=== PATIENT | male | born 1950 | race Caucasian/White ===

== ENCOUNTER → 2016-06-29 | Day surgery (SDC) | payer MEDICARE ==
[~2016-06-29] MED LIST: ACETAMINOPHEN/HYDROcodone 325 MG/5 MG TAB ONE; ASPI1TAB69 PO; BUPIVACAINE/EPINEPHRINE 0.5% 50 ML VIAL ONE; CEPH-460 PO; CYAN1000P IM; CYMB30CA PO; DILT-64 PO; FURO1TAB60 PO; GABA400C5 PO; GLIM4TAB PO; HYDR-3288 PO; HYDR-3535 PO; KETOROLAC TROMETHAMINE 30 MG/ML (IVP) VIAL IV PUSH ONE; LACTATED RINGER'S 1000 ML INJ 1,000 ML ONE; LIPI80TA PO; LISI20TA PO; MIDAZOLAM HCL 2 MG/2 ML VIAL ONE; PRIM50TA5 PO; PROPOFOL 200 MG/20 ML AMP IV ONE; PROS5TAB PO; ROPI0.5T PO; ZETI10TA5 PO; ceFAZolin INJ 1,000 MG VIAL ONE
--- NOTE | 2016-06-29 16:04 | TN ---
cc: MEMO BRADFORD DATE OF SURGERY: 06/29/2016 PREOPERATIVE DIAGNOSIS: Internal derangement of the right knee. POSTOPERATIVE DIAGNOSIS: Complex tear of the medial meniscus, right knee. Displaced bucket handle. Osteoarthritis right knee, mild. PROCEDURE: Arthroscopy of the right knee. Arthroscopic medial meniscectomy. SURGEON: Memo Bradford MD. ANESTHESIA: General. ESTIMATED BLOOD LOSS: Minimal. INDICATIONS FOR PROCEDURE: This patient is a 65 year-old male who in December of this year twisted his right knee. He has significant increasing pain, although it began to improve but then suddenly became symptomatic again. An MRI scan shows evidence of a torn medial meniscus. He presents for surgical treatment. PROCEDURE: The patient was brought to the operating room and anesthetized in the supine position. The right knee was scrubbed with alcohol, followed by Hibiclens, followed by Chloraprep and draped sterilely in the clear air suite. Antibiotics were given within a one hour time window and a time out was done. PROCEDURE: The patient was brought to the operating room and anesthetized in the supine position. A time out was done. After exsanguination the tourniquet is inflated to 200 mmHg. Inflow was established anterior and laterally. The knee was drained of an effusion. The camera was introduced along the lateral joint line. The suprapatellar pouch was unremarkable. Retropatellar surface shows grade 1 changes. There were no loose bodies in the medial or lateral gutters. The medial compartment showed evidence of a bucket handle tear that had torn from approximately the 2:00 o'clock position and is hooked into the notch. The anterior portion of the meniscus looked normal. Grade had changes of the distal femur and proximal medial tibial plateau were noted. The ACL showed mild synovitis but otherwise was intact. The lateral compartment was normal. The spinal needle was used to localize the medial incision. A separate incision was made. Straight and angled punches were used to take the meniscus back to the stable rim from the posterior hook to approximately the 3:00 clock position. The meniscal debrider was used to remove the fragments and smooth the edges of the meniscus. A synovectomy in the notch was necessary. The wound was irrigated copiously, the portals were injected with half percent Marcaine with epinephrine and were closed with Steri-Strips and benzoin. Sterile dressing was applied. The patient was awakened and taken to the Recovery Room in satisfactory condition. Memo MD MARC Hong/keron /3:44 PM /3:54 PM
== END | disposition home or self-care (01) ==
LOC: ESDC 11:45
PROVIDERS: ATTEND Orthopaedic Surgery Orthopaedic Surgery of the Spine
DX: S83.231A Complex tear of medial meniscus, current injury, right knee, initial encounter (principal); M17.11 Unilateral primary osteoarthritis, right knee
CPT/HCPCS: 01400; 29881; J0690; J1885; J2250; J3010; J7120

== ENCOUNTER → 2016-08-13 | Day surgery (SDC) | payer MEDICARE ==
[~2016-08-13] MED LIST changes: -ACETAMINOPHEN/HYDROcodone 325 MG/5 MG TAB ONE; -BUPIVACAINE/EPINEPHRINE 0.5% 50 ML VIAL ONE; -KETOROLAC TROMETHAMINE 30 MG/ML (IVP) VIAL IV PUSH ONE; -MIDAZOLAM HCL 2 MG/2 ML VIAL ONE; -PROPOFOL 200 MG/20 ML AMP IV ONE; +PROPOFOL 500 MG/50 ML BTL IV ONE; -ceFAZolin INJ 1,000 MG VIAL ONE
== END | disposition home or self-care (01) ==
LOC: ESDC 08:51
PROVIDERS: ATTEND Internal Medicine Gastroenterology
DX: R10.9 Unspecified abdominal pain (principal); K29.70 Gastritis, unspecified, without bleeding; K22.70 Barrett's esophagus without dysplasia; K29.80 Duodenitis without bleeding; K44.9 Diaphragmatic hernia without obstruction or gangrene
CPT/HCPCS: 00740; 43239; 88305; J7120

== ENCOUNTER 2018-08-10 16:22 | Inpatient (IN) ==
[2018-08-10] MEDS ORDERED: Clindamycin 600 mg/NS Premix 600 MG/50 ML PIGGYBACK IV.SIG ONE (16:57)
[2018-08-10] MEDS ORDERED: Lidocaine 1% Inj 50 ML Vial INFILTRATN ONE (16:57)
[2018-08-10 17:42] LABS: Baso # (Auto) 0.1 th/mm3 (0.0-0.2); Baso % (Auto) 0.6 % (0.0-2.0); Eos # (Auto) 0.2 th/mm3 (0.0-0.4); Eos % (Auto) 1.6 % (0.0-4.0); Hematocrit 47.9 % (39.0-51.0); Hemoglobin 16.5 gm/dL (13.0-17.0); Lymph # (Auto) 1.4 th/mm3 (1.0-4.8); Lymph % (Auto) 10.6 % (9.0-44.0); Mean Corpuscular HGB Conc 34.3 % (32.0-36.0); Mean Corpuscular Hemoglobin 31.6 pg (27.0-34.0); Mean Corpuscular Volume 92.1 fL (80.0-100.0); Mean Platelet Volume 9.6 fL (7.0-11.0); Mono % (Auto) 7.7 % (0.0-8.0); Neut # (Auto) 10.4 th/mm3 (1.8-7.7); Neut % (Auto) 79.5 % (16.0-70.0); Platelet Count 183 th/mm3 (150-450); Red Cell Distribution Width 15.6 % (11.6-17.2); White Blood Count 13.1 th/mm3 (4.0-11.0)
[2018-08-10 17:53] LABS: Calcium 8.4 mg/dL (8.5-10.1); Carbon Dioxide 28.6 meq/L (21.0-32.0); Potassium 3.5 meq/L (3.5-5.1)
--- NOTE | 2018-08-10 18:21 | ED ---
HPI General Chief complaint: Skin/Abscess/Foreign Body Stated complaint: numbness in both feet/skin complaint Time Seen by Provider: 08/10/18 16:33 Source: patient and family Mode of arrival: ambulatory Limitations: no limitations History of Present Illness HPI narrative: 68-year-old man who presents to the emergency department complaining of pain and swelling on his left elbow. He also has several small skin wounds. Is a history of MRSA bursitis in his right elbow. This was treated in 2016. He required 2 surgeries for debridement and washout. He was seen by Dr. Mantilla. He states these symptoms began worse over the past several days. No fever. Is a history of diabetes. Is able to range the elbow without significant discomfort. No other complaints. Related Data Home Medications Medication Instructions Recorded Confirmed amitriptyline 25 mg PO DAILY 08/10/18 08/10/18 aspirin 81 mg PO DAILY 08/10/18 08/10/18 atorvastatin 80 mg PO QPM 08/10/18 08/10/18 bupropion HCl [Wellbutrin SR] 100 mg PO BID 08/10/18 08/10/18 diltiazem HCl 240 mg PO DAILY 08/10/18 08/10/18 duloxetine 60 mg PO BID 08/10/18 08/10/18 finasteride 5 mg PO DAILY 08/10/18 08/10/18 furosemide 40 mg PO DAILY 08/10/18 08/10/18 gabapentin 600 mg PO TID 08/10/18 08/10/18 glimepiride 4 mg PO BID 08/10/18 08/10/18 hydrocodone-acetaminophen 1 tab PO Q6H PRN 08/10/18 08/10/18 lisinopril-hydrochlorothiazide 1 tab PO DAILY 08/10/18 08/10/18 melatonin 6 mg PO HS PRN 08/10/18 08/10/18 prazosin 2 mg PO HS 08/10/18 08/10/18 ranitidine HCl 150 mg PO BID 08/10/18 08/10/18 ropinirole 0.25 mg PO BID 08/10/18 08/10/18 trazodone 200 mg PO DAILY 08/10/18 08/10/18 Allergies Allergy/AdvReac Type Severity Reaction Status Date / Time adhesive Allergy Severe RASH Unverified 04/25/17 09:56 penicillin G Allergy Severe Unverified 04/25/17 09:56 Review of Systems ROS: all other systems reviewed are negative FOR[facility]LY [facility] Medical History Medical History Arthritis (Acute) COPD (chronic obstructive pulmonary disease) (Acute) Diabetes (Acute) Hypertension (Acute) MRSA (methicillin resistant Staphylococcus aureus) (Acute) Neuropathy (Acute) Social History Social History Substance History: No History of Abuse Smoking Status: Current every day smoker Tobacco Type: Cigarettes How Often Do You Have a Drink Containing Alcohol: Never Recent Travel in [facility] within the Last 8 Weeks: No Recent Out of Country Travel within the Last 8 Weeks: No Immunization History Tetanus Immunization: <5 Years Exam Narrative Exam Narrative: GENERAL: 68-year-old man, no acute distress. SKIN: Multiple dry skin scattered psoriatic appearing plaques on the upper and lower extremities. HEAD: Atraumatic. Normocephalic. EYES: Pupils equal and round. No scleral icterus. No injection or drainage. ENT: No nasal bleeding or discharge. Mucous membranes pink and moist. NECK: Trachea midline. No JVD. CARDIOVASCULAR: Regular rate and rhythm. No murmur appreciated. RESPIRATORY: No accessory muscle use. Clear to auscultation. Breath sounds equal bilaterally. GASTROINTESTINAL: Abdomen soft, non-tender, nondistended. Hepatic and splenic margins not palpable. MUSCULOSKELETAL: No obvious deformities. Scars on the right elbow. Left elbow has a prominent olecranon bursa with erythema warmth and tenderness. NEUROLOGICAL: Awake and alert. No obvious cranial nerve deficits. Motor grossly within normal limits. Normal speech. Procedures Joint Aspiration/Injection Joint Asp./Inject. 1: Time Out Performed: Yes Side of Body: left Joint Aspirated: elbow Ultrasound Guidance: Yes Skin Prep: Povidone-Iodine1% Local Anesthesia Used: lidocaine 1% Amount of anesthesia used (mL): 5 Needle Size Used: 18G Complications: unable to obtain fluid Additional Comments: 2 attempts were made to aspirate fluid from the left olecranon bursa without fluid return. Initial attempt was a landmark base. Second attempt using ultrasound a localized pocket of fluid, but still no return of fluid on aspiration. Fluid did appear complex. Course Initial Documented Vital Signs Temperature 98.4 F 02/17/19 16:24 Pulse Rate 96 H 08/10/18 16:24 Respiratory Rate 24 08/10/18 16:24 Blood Pressure 132/71 08/10/18 16:24 Pulse Oximetry 87 L 08/10/18 16:24 Last Documented Vital Signs Temperature 98.4 F 08/10/18 16:24 Pulse Rate 76 08/10/18 18:27 Respiratory Rate 18 08/10/18 18:27 Blood Pressure 132/71 08/10/18 16:24 Pulse Oximetry 92 L 08/10/18 18:27 Medical Decision Making MDM Narrative Medical decision making narrative: 68-year-old man with olecranon bursitis, diabetes, history of MRSA infected bursitis in the past. To attempt to obtain bursa fluid were unsuccessful. The fluid does look complex. I am not sure why the fluid was not able to be obtained as this procedure seem fairly straightforward and there appeared to be fluid to drain on the ultrasound. Will check x-ray. Will check basic labs were discussed with orthopedics. Possibly radiology guided procedure. Possibly tophaceous gout mimicking olecranon bursitis? Plan on admission. Spoke with Ofelia, with orthopedics, recommends holding antibiotics pending fluid analysis. They will consult on the patient in the a.m. Spoke with Dr. Dodge, will admit patient. Medical Screen Exam Complete: Yes Emergency Medical Condition: Yes Lab Data Result diagrams: 08/10/18 17:15 08/10/18 17:15 Lab Results 08/10/18 08/10/18 08/10/18 Range/Units 17:15 17:15 17:15 WBC 13.1 H (4.0-11.0) th/mm3 RBC 5.20 (4.50-5.90) mil/mm3 Hgb 16.5 (13.0-17.0) gm/dL Hct 47.9 (39.0-51.0) % MCV 92.1 (80.0-100.0) fL MCH 31.6 (27.0-34.0) pg MCHC 34.3 (32.0-36.0) % RDW 15.6 (11.6-17.2) % Plt Count 183 (150-450) th/mm3 MPV 9.6 (7.0-11.0) fL Neut % (Auto) 79.5 H (16.0-70.0) % Lymph % (Auto) 10.6 (9.0-44.0) % [place] % (Auto) 7.7 (0.0-8.0) % Eos % (Auto) 1.6 (0.0-4.0) % Baso % (Auto) 0.6 (0.0-2.0) % Neut # (Auto) 10.4 H (1.8-7.7) th/mm3 Lymph # (Auto) 1.4 (1.0-4.8) th/mm3 [place] # (Auto) 1.0 H (0.0-0.9) th/mm3 Eos # (Auto) 0.2 (0.0-0.4) th/mm3 Baso # (Auto) 0.1 (0.0-0.2) th/mm3 WBC Differential . Differential Comment Auto diff final ESR (0-20) mm/hr Sodium 136 (136-145) meq/L Potassium 3.5 (3.5-5.1) meq/L Chloride 100 (98-107) meq/L Carbon Dioxide 28.6 (21.0-32.0) meq/L Anion Gap 7 (5-15) meq/L BUN 16 (7-18) mg/dL Creatinine 1.09 (0.60-1.30) mg/dL Estimated GFR 67 L (>89) mL/min Random Glucose 239 H (74-106) mg/dL Calcium 8.4 L (8.5-10.1) mg/dL C-Reactive Protein 7.50 H (0.00-0.30) mg/dL 08/10/18 Range/Units 17:15 WBC (4.0-11.0) th/mm3 RBC (4.50-5.90) mil/mm3 Hgb (13.0-17.0) gm/dL Hct (39.0-51.0) % MCV (80.0-100.0) fL MCH (27.0-34.0) pg MCHC (32.0-36.0) % RDW (11.6-17.2) % Plt Count (150-450) th/mm3 MPV (7.0-11.0) fL Neut % (Auto) (16.0-70.0) % Lymph % (Auto) (9.0-44.0) % [place] % (Auto) (0.0-8.0) % Eos % (Auto) (0.0-4.0) % Baso % (Auto) (0.0-2.0) % Neut # (Auto) (1.8-7.7) th/mm3 Lymph # (Auto) (1.0-4.8) th/mm3 [place] # (Auto) (0.0-0.9) th/mm3 Eos # (Auto) (0.0-0.4) th/mm3 Baso # (Auto) (0.0-0.2) th/mm3 WBC Differential Differential Comment ESR 4 (0-20) mm/hr Sodium (136-145) meq/L Potassium (3.5-5.1) meq/L Chloride (98-107) meq/L Carbon Dioxide (21.0-32.0) meq/L Anion Gap (5-15) meq/L BUN (7-18) mg/dL Creatinine (0.60-1.30) mg/dL Estimated GFR (>89) mL/min Random Glucose (74-106) mg/dL Calcium (8.5-10.1) mg/dL C-Reactive Protein (0.00-0.30) mg/dL Imaging Data Radiologist's impression: Elbow X-Ray 08/10/18 18:04 CONCLUSION: Soft tissue swelling extensor surface of the elbow most characteristic of an olecranon bursitis. Discharge Plan Discharge Disposition Patient Disposition: ED Admit(ED Internal Use Only) Discharge Order Discharge Orders: ED Use Only Admit Order (Routine); Ordered 08/10/18 Ordered By: Vidal Carter Physicians Team ED Provider: Vidal Carter Rxs /Orders / Referrals /Forms Prescriptions: No Action furosemide 40 mg Tablet 40 mg PO DAILY RF: 0 atorvastatin 80 mg Tablet 80 mg PO QPM RF: 0 lisinopril-hydrochlorothiazide 20-12.5 mg Tablet 1 tab PO DAILY RF: 0 diltiazem HCl 240 mg Capsule,Extended Release 24 Hr 240 mg PO DAILY RF: 0 melatonin 3 mg Tablet 6 mg PO HS PRN (Reason: Sleep) RF: 0 bupropion HCl [Wellbutrin SR] 100 mg Tablet Sustained-Release 12 Hr 100 mg PO BID RF: 0 glimepiride 2 mg Tablet 4 mg PO BID RF: 0 amitriptyline 25 mg Tablet 25 mg PO DAILY RF: 0 trazodone 100 mg Tablet 200 mg PO DAILY RF: 0 ropinirole 0.25 mg Tablet 0.25 mg PO BID RF: 0 hydrocodone-acetaminophen 7.5-325 mg Tablet 1 tab PO Q6H PRN (Reason: Pain) RF: 0 ranitidine HCl 150 mg Tablet 150 mg PO BID RF: 0 gabapentin 300 mg Capsule 600 mg PO TID RF: 0 aspirin 81 mg Tablet,Chewable 81 mg PO DAILY RF: 0 finasteride 5 mg Tablet 5 mg PO DAILY RF: 0 prazosin 2 mg Capsule 2 mg PO HS RF: 0 duloxetine 60 mg Capsule,Delayed Release(Dr/Ec) 60 mg PO BID RF: 0 Discharge Interventions Interventions: Vital Signs Last Done: 08/10/18 18:27 Status ED Status: With Doctor
--- NOTE | 2018-08-10 18:31 | XR ---
EXAM DATE: 08/10/2018 6:22 PM EST AGE/SEX: 68 years / Male INDICATIONS: Inflammation and pain left elbow, denies injury CLINICAL DATA: This is the patient's initial encounter. Patient reports that signs and symptoms have been present for 2 weeks and indicates a pain score of 6/10. MEDICAL/SURGICAL HISTORY: Diabetes mellitus type II. Hypertension. None. COMPARISON: No prior exams available for comparison. FINDINGS: Bony structures are intact and in normal alignment. Joints are intact without dislocation or signifi cant arthropathy. Osseous density is normal. There is marked soft tissue swelling over the extensor surface of the elbow. CONCLUSION: Soft tissue swelling extensor surface of the elbow most characteristic of an olecranon bursitis. Electronically signed by: Jimmy Connors MD Board Certified Radiologist 08/10/2018 6:29 PM EST
[2018-08-10] MEDS ORDERED: Acetaminophen 325 MG Tablet PO PRN (18:56)
[2018-08-10] MEDS ORDERED: HYDROmorphone PF Inj 2 MG/ML Vial IV.PUSH PRN (19:00)
[2018-08-10] MEDS ORDERED: Dextrose 50% in Water 50 ML Vial IV.PUSH PRN (19:00)
[2018-08-10] MEDS ORDERED: MELATONIN 6 MG PO PRN (19:03)
[2018-08-10] MEDS: KCL 20 mEq/NACL 0.45% Inj 1,000 ML IV.CONT SCH (19:56)
[2018-08-10] MEDS ORDERED: Finasteride 5 MG Tablet PO SCH (21:00)
[2018-08-10] MEDS ORDERED: Amitriptyline 25 MG Tablet PO SCH (21:00)
[2018-08-10] MEDS ORDERED: Duloxetine 60 MG DR Capsule PO SCH (21:00)
[2018-08-10] MEDS: Insulin NovoLOG Aspart Correctional Sugar Inj SQ SCH (21:23)
[2018-08-10] MEDS: Senna/Docusate Sodium 8.6/50 MG Tablet PO SCH (22:05)
[2018-08-11] MEDS ORDERED: Melatonin 5 MG Tablet PO PRN (00:30)
--- NOTE | 2018-08-11 08:06 | P.HPIM ---
History of Present Illness Primary Care Physician: Dr. Jeffery Fortune Chief Complaint: pain left elbow History of Present Illness: Mr Billy is a 68-year-old man with a past medical history which includes MRSA bursitis in right elbow, diabetes mellitus type 2, hypertension, hyperlipidemia, chronic interstitial lung disease/chronic respiratory failure, pulmonary emphysema, benign pulmonary lung nodules obstructive sleep apnea does not wear CPAP, GERD/hiatal hernia/Cardenas's esophagitis, BPH, adrenal adenoma, nephrolithiasis, fatty liver, mild memory impairment/memory loss follows with Dr. Yoder, squamous cell carcinoma right hand skin, melanoma right interscapular. Patient presents to the emergency department complaining of pain and swelling on his left elbow. He also has several small skin wounds. Is a history of MRSA bursitis in his right elbow. This was treated in 2016. He required 2 surgeries for debridement and washout. He was seen by Dr. Mantilla. He states these symptoms began worse over the past several days. No fever. Is a history of diabetes. Is able to range the elbow without significant discomfort. No other complaints. Patient denies worsening shortness of breath from baseline, chest pain, nausea, vomiting, diarrhea constant, constipation, fever or chills. Past medical history: MRSA bursitis in right elbow, diabetes mellitus type 2, hypertension, hyperlipidemia, chronic interstitial lung disease/chronic respiratory failure, pulmonary emphysema, benign pulmonary lung nodules obstructive sleep apnea does not wear CPAP, GERD/hiatal hernia/Cardenas's esophagitis, BPH, adrenal adenoma, nephrolithiasis, fatty liver, mild memory impairment/memory loss follows with Dr. Yoder squamous cell carcinoma right hand skin, melanoma right interscapular Past surgical history: Left shoulder arthroscopic, right shoulder arthroscopic, cataract surgery, chest tube insertion, laparoscopic cholecystectomy, colonoscopy, EGD, cystourethroscopic, inguinal hernia repair, lumbar laminectomy, lumbar vertebral fusion, paravertebral facet nerve block, ptosis repair, spinal laminectomy decompression, vasectomy, colonoscopy with wedge resection of lung, tonsillectomy, TURP and wide excision melanoma 2009 Social history: Currently lives with spouse Denies EtOH or illicit drug use Tobacco use: smokes 2 PPD started smoking at 17 years old Family medical history: Arthritis, diabetes mellitus, hypertension, CHF Inpatient Certification Inpatient Certification: I certify that the inpatient services were ordered in accordance with Medicare regulations governing the order. This includes certification that hospital inpatient services are reasonable and necessary and in the case of services not specified as inpatient-only under 42 CFR 419.22(n), that they are appropriately provided as inpatient services in accordance to with the 2-midnight benchmark under 43 CFR 412.3(e) Estimated Total Length of Stay (Days): 3 Plans for Post Hospital Care: Not yet determined Medications and Allergies Allergies Allergy/AdvReac Type Severity Reaction Status Date / Time adhesive Allergy Severe RASH Verified 08/10/18 20:17 penicillin G Allergy Severe unknown Verified 08/10/18 20:17 Home Medications Medication Instructions Recorded Confirmed Type amitriptyline 25 mg PO DAILY 08/10/18 08/10/18 History aspirin 81 mg PO DAILY 08/10/18 08/10/18 History atorvastatin 80 mg PO QPM 08/10/18 08/10/18 History bupropion HCl [Wellbutrin SR] 100 mg PO BID 08/10/18 08/10/18 History diltiazem HCl 240 mg PO DAILY 08/10/18 08/10/18 History duloxetine 60 mg PO BID 08/10/18 08/10/18 History finasteride 5 mg PO DAILY 08/10/18 08/10/18 History furosemide 40 mg PO DAILY 08/10/18 08/10/18 History gabapentin 600 mg PO TID 08/10/18 08/10/18 History glimepiride 4 mg PO BID 08/10/18 08/10/18 History hydrocodone-acetaminophen 1 tab PO Q6H PRN 08/10/18 08/10/18 History lisinopril-hydrochlorothiazide 1 tab PO DAILY 08/10/18 08/10/18 History melatonin 6 mg PO HS PRN 08/10/18 08/10/18 History prazosin 2 mg PO HS 08/10/18 08/10/18 History ranitidine HCl 150 mg PO BID 08/10/18 08/10/18 History ropinirole 0.25 mg PO BID 08/10/18 08/10/18 History trazodone 200 mg PO DAILY 08/10/18 08/10/18 History Active Medications: Active Medications Acetaminophen (Tylenol) 650 mg PO Q4H PRN PRN Reason: Temp > 100.4 Hydrocodone Bitart/Acetaminophen ([place] 5/325) 1 tab PO Q4H PRN PRN Reason: pain 1-10, Last Admin: 08/11/18 04:56 Dose: 1 tab Al Hydroxide/Mg Hydroxide (Milk Of Magnko Liq) 30 ml PO Q12H PRN PRN Reason: Mild Constipation Amitriptyline HCl (Elavil) 25 mg PO HS [facility] Last Admin: 08/10/18 22:06 Dose: 25 mg Aspirin (Aspirin Chew) 81 mg PO DAILY [facility] Atorvastatin Calcium (Lipitor) 80 mg PO QPM [facility] Dextrose (D50w Vial) 50 ml IV.PUSH UNSCH PRN PRN Reason: PER HYPOGLYCEMIA PROTOCOL Diltiazem HCl (Cardizem Cd 24hr) 240 mg PO DAILY [facility] Duloxetine HCl (Cymbalta) 60 mg PO BID [facility] Famotidine (Pepcid) 20 mg PO BID [facility] Finasteride (Proscar) 5 mg PO HS [facility] Last Admin: 08/10/18 22:06 Dose: 5 mg Furosemide (Lasix) 40 mg PO DAILY [facility] Gabapentin (Neurontin) 600 mg PO TID [facility] Glucagon (Glucagon Inj) 1 mg OTHER PRN PRN PRN Reason: for Hypoglycemia Protocol Hydrochlorothiazide (Hydrodiuril) 12.5 mg PO DAILY [facility] Hydromorphone HCl (Dilaudid Pf Inj) 0.5 mg IV.PUSH Q4H PRN PRN Reason: BREAKTHROUGH PAIN Potassium Chloride/Sodium Chloride (Potassium Chlor 20 Meq/Nacl 0.45% Inj) 1, 000 mls @ 84 mls/hr IV.CONT .[id number] [facility] Last Admin: 08/10/18 19:56 Dose: 84 mls/hr Insulin Aspart (Novolog Insulin Correctional Sugar Inj) 0 unit SQ ACHS [facility]; Protocol Last Admin: 08/10/18 21:23 Dose: 2 unit Lisinopril (Prinivil) 20 mg PO DAILY [facility] Melatonin (Melatonin) 5 mg PO HS PRN PRN Reason: INSOMNIA Ondansetron HCl (Zofran Inj) 4 mg IV.PUSH Q6H PRN PRN Reason: NAUSEA OR VOMITING Prazosin HCl (Minipress) 2 mg PO HS [facility] Last Admin: 08/10/18 22:40 Dose: 2 mg Ropinirole HCl (Requip) 0.25 mg PO BID [facility] Last Admin: 08/10/18 22:40 Dose: 0.25 mg Senna/Docusate Sodium (Xuan-Colace) 1 tab PO BID [facility] Last Admin: 08/10/18 22:05 Dose: 1 tab Sodium Chloride (Ns Flush) 2 ml IV.FLUSH BID [facility] Last Admin: 08/10/18 22:40 Dose: Not Given Sodium Chloride (Ns Flush) 2 ml IV.FLUSH PRN PRN PRN Reason: FLUSH AFTER USING IV ACCESS Physical Exam Vital signs: Last Vital Signs Temp 98.0 F 08/11/18 00:00 Pulse 92 H 08/11/18 00:00 Resp 22 08/11/18 00:00 BP 141/77 H 08/11/18 00:00 Pulse Ox 90 L 08/11/18 00:00 Narrative: GENERAL: This is a well-nourished, well-developed patient, in no apparent distress. CARDIOVASCULAR: Regular rate and rhythm without murmurs, gallops, or rubs. RESPIRATORY: Clear to auscultation. Breath sounds equal bilaterally. No wheezes , rales, or rhonchi. GASTROINTESTINAL: Abdomen soft, non-tender, nondistended. Normal active bowel sounds MUSCULOSKELETAL: left elbow edemitous NEURO: Alert & Oriented x4 to person, place, time, situation. Moves all ext x4 Results Labs CBC & Chem 7: 08/11/18 07:14 08/11/18 07:14 Caprini VTE Risk Assessment Caprini VTE Risk Assessment: No/Low Risk (score <= 1) Caprini Risk Assessment Model: Point Value = 1 Point Value = 2 Point Value = 3 Point Value = 5 Age 41-60 Minor surgery BMI > 25 kg/m2 Swollen legs Varicose veins or History of unexplained or recurrent spontaneous Oral contraceptives or hormone replacement Sepsis (< 1 month) Serious lung disease, including pneumonia (< 1 month) Abnormal pulmonary function Acute myocardial infarction Congestive heart failure (< 1 month) History of inflammatory bowel disease Medical patient at bed rest Age 61-74 Arthroscopic surgery Major open surgery (> 45 min) Laparoscopic surgery (> 45 min) Malignancy Confined to bed (> 72 hours) Immobilizing plaster cast Central venous access Age >= 75 History of VTE Family history of VTE Factor V Leiden Prothrombin [id number] Lupus anticoagulant Anticardiolipin antibodies Elevated serum homocysteine Heparin-induced thrombocytopenia Other congenital or acquired thrombophilia Stroke (< 1 month) Elective arthroplasty Hip, pelvis, or leg fracture Acute spinal cord injury (< 1 month) Prophylaxis Regimen: Total Risk Factor Score Risk Level Prophylaxis Regimen 0-1 Low Early ambulation 2 Moderate Order ONE of the following: *Sequential Compression Device (SCD) *Heparin 5000 units SQ BID 3-4 Higher Order ONE of the following medications: *Heparin 5000 units SQ TID *Enoxaparin/Lovenox 40 mg SQ daily (WT < 150 kg, CrCl > 30 mL/min) *Enoxaparin/Lovenox 30 mg SQ daily (WT < 150 kg, CrCl > 10-29 mL/min) *Enoxaparin/Lovenox 30 mg SQ BID (WT < 150 kg, CrCl > 30 mL/min) AND/OR *Sequential Compression Device (SCD) 5 or more Highest Order ONE of the following medications: *Heparin 5000 units SQ TID (Preferred with Epidurals) *Enoxaparin/Lovenox 40 mg SQ daily (WT < 150 kg, CrCl > 30 mL/min) *Enoxaparin/Lovenox 30 mg SQ daily (WT < 150 kg, CrCl > 10-29 mL/min) *Enoxaparin/Lovenox 30 mg SQ BID (WT < 150 kg, CrCl > 30 mL/min) AND *Sequential Compression Device (SCD) Assessment and Plan Plan Mr Cervantes is a 68-year-old man with a past medical history which includes MRSA bursitis in right elbow, diabetes mellitus type 2, hypertension, hyperlipidemia , chronic interstitial lung disease/chronic respiratory failure, pulmonary emphysema, benign pulmonary lung nodules obstructive sleep apnea does not wear CPAP, GERD/hiatal hernia/Cardenas's esophagitis, BPH, adrenal adenoma, nephrolithiasis, fatty liver, mild memory impairment/memory loss follows with Dr. Yoder, squamous cell carcinoma right hand skin, melanoma right interscapular. Patient presents to the emergency department complaining of pain and swelling on his left elbow. He also has several small skin wounds. Patient has a history of MRSA bursitis in his right elbow. This was treated in 2016. He required 2 surgeries for debridement and washout. He was seen by Dr. Mantilla. He states these symptoms began worse over the past several days. No fever. Patient is diabetic. Is able to range the elbow without significant discomfort. No other complaints. Patient denies worsening shortness of breath from baseline, chest pain, nausea, vomiting, diarrhea constant, constipation, fever or chills. Olecranon bursitis Patient has a history of MRSA bursitis in his right elbow. This was treated in 2016. He required 2 surgeries for debridement and washout. He was seen by Dr. Mantilla. Patient is also diabetic ER provider attempted to aspirate x2 with no fluid returned ER provider discussed with orthopedics through the night who recommend holding off on antibiotics until after aspiration this a.m. Consultation placed to orthopedic surgery, appreciate assistance. Per Orthopedic surgery: Currently it appears to be inflammatory bursitis. It does not appear to be infection or septic bursitis or septic joint. Orthopedic surgery cleared patient for DC. Pain medication as needed Diabetes mellitus type 2 Accu-Cheks with sliding scale insulin coverage Chronic interstitial lung disease/chronic respiratory failure, pulmonary emphysema Patient denies SOB Patient stable on RA BPH Continue patient's home Finasteride 5 mg daily and prazosin 2 mg p.o. nightly Hyperlipidemia Continue patient's home atorvastatin 80 mg p.o. every afternoon Hypertension Continue patient's home lisinopril/hydrochlorothiazide Continue patient's home diltiazem 240 mg daily GERD Continue patient's home Pepcid DVT prophylaxis with SCDs DC patient home in stable condition on a diabetic diet. Orthopedic surgery recommending conservative treatment with anti-inflammatories , ice, and activity restriction H&P: Quality VTE Deep Vein Thrombosis/Pulmonary Embolism Present on Admission: No
[2018-08-11 08:08] VITALS: RESP 17
--- NOTE | 2018-08-11 08:16 | P.CONOP ---
[facility] Orthopedics Consult Note - [facility] Consult date: 08/11/18 Chief complaint: Left elbow swelling Narrative: Bay is a 68-year-old male. He presented to the emergency room with approximately 10-day history of left elbow swelling. He denies any significant pain. He denies any falls or traumatic injuries. He has a history of previous right elbow bursitis which needed surgery for irrigation debridement of infection. He does have history of diabetes, hypertension, high cholesterol, COPD, sleep apnea, and lung disease. He denies any fevers or chills. The swelling is not improved over the past several days. He denies any pain with elbow motion. He presented emergency room. Attempt was made at aspiration of the elbow. No fluid was obtained. Review of Systems Patient denies fevers, chills, weight loss, headache, visual changes, hearing loss, chest pain, palpitations, shortness of breath, nausea, vomiting, no urinary changes, diarrhea, bowel changes, neck pain, back pain, skin rashes, weakness of extremities, easy bleeding, enlarged lymph nodes, numbness of extremities, anxiety, or depression. He complains of left elbow swelling. He has minimal pain Patient's social history, past medical history, and family history were reviewed on chart and with patient. He has a history of 2 previous surgeries on his right elbow for infection PMFSH - History History Provided By: Patient - Medical History Medical History: Medical History (Last Reviewed 08/11/18 @ 08:13 by Monico Gerardo MD) Arthritis COPD (chronic obstructive pulmonary disease) Diabetes Hypertension MRSA (methicillin resistant Staphylococcus aureus) Neuropathy - Family History Family History: Family History (Last Updated 08/11/18 @ 08:13 by Monico Gerardo MD) Other Family history non-contributory - Social History I have reviewed the patient's Social History: Yes - Tobacco History Second Hand Smoke Exposure: No Tobacco Use In Past 30 Days: Yes Smoking Status: Current some day smoker Tobacco Type: Cigarettes - Alcohol History How Often Do You Have a Drink Containing Alcohol: Never - Substance Use History Substance History: No History of Abuse - Travel History Recent Travel in the [place] Within the Last 8 Weeks: No Recent Travel Out of the Country Within the Last 8 Weeks: No - Immunization History Tetanus Immunization: <5 Years Hx Influenza Vaccine This Season: Yes Medications and Allergies Active Medications: Active Medications Acetaminophen (Tylenol) 650 mg PO Q4H PRN PRN Reason: Temp > 100.4 Hydrocodone Bitart/Acetaminophen ([place] 5/325) 1 tab PO Q4H PRN PRN Reason: pain 1-10, Last Admin: 08/11/18 04:56 Dose: 1 tab Al Hydroxide/Mg Hydroxide (Milk Of Justin Erickson) 30 ml PO Q12H PRN PRN Reason: Mild Constipation Amitriptyline HCl (Elavil) 25 mg PO HS [facility] Last Admin: 08/10/18 22:06 Dose: 25 mg Aspirin (Aspirin Chew) 81 mg PO DAILY [facility] Atorvastatin Calcium (Lipitor) 80 mg PO QPM [facility] Dextrose (D50w Vial) 50 ml IV.PUSH UNSCH PRN PRN Reason: PER HYPOGLYCEMIA PROTOCOL Diltiazem HCl (Cardizem Cd 24hr) 240 mg PO DAILY [facility] Duloxetine HCl (Cymbalta) 60 mg PO BID [facility] Famotidine (Pepcid) 20 mg PO BID [facility] Finasteride (Proscar) 5 mg PO HS [facility] Last Admin: 08/10/18 22:06 Dose: 5 mg Furosemide (Lasix) 40 mg PO DAILY [facility] Gabapentin (Neurontin) 600 mg PO TID [facility] Glucagon (Glucagon Inj) 1 mg OTHER PRN PRN PRN Reason: for Hypoglycemia Protocol Hydrochlorothiazide (Hydrodiuril) 12.5 mg PO DAILY [facility] Hydromorphone HCl (Dilaudid Pf Inj) 0.5 mg IV.PUSH Q4H PRN PRN Reason: BREAKTHROUGH PAIN Potassium Chloride/Sodium Chloride (Potassium Chlor 20 Meq/Nacl 0.45% Inj) 1, 000 mls @ 84 mls/hr IV.CONT .[id number] [facility] Last Admin: 08/10/18 19:56 Dose: 84 mls/hr Insulin Aspart (Novolog Insulin Correctional Sugar Inj) 0 unit SQ ACHS [facility]; Protocol Last Admin: 08/10/18 21:23 Dose: 2 unit Lisinopril (Prinivil) 20 mg PO DAILY [facility] Melatonin (Melatonin) 5 mg PO HS PRN PRN Reason: INSOMNIA Ondansetron HCl (Zofran Inj) 4 mg IV.PUSH Q6H PRN PRN Reason: NAUSEA OR VOMITING Prazosin HCl (Minipress) 2 mg PO HS [facility] Last Admin: 08/10/18 22:40 Dose: 2 mg Ropinirole HCl (Requip) 0.25 mg PO BID [facility] Last Admin: 08/10/18 22:40 Dose: 0.25 mg Senna/Docusate Sodium (Xuan-Colace) 1 tab PO BID [facility] Last Admin: 08/10/18 22:05 Dose: 1 tab Sodium Chloride (Ns Flush) 2 ml IV.FLUSH BID [facility] Last Admin: 08/10/18 22:40 Dose: Not Given Sodium Chloride (Ns Flush) 2 ml IV.FLUSH PRN PRN PRN Reason: FLUSH AFTER USING IV ACCESS Allergies Allergy/AdvReac Type Severity Reaction Status Date / Time adhesive Allergy Severe RASH Verified 08/10/18 20:17 penicillin G Allergy Severe unknown Verified 08/10/18 20:17 Home Medications Medication Instructions Recorded Confirmed Type amitriptyline 25 mg PO DAILY 08/10/18 08/10/18 History aspirin 81 mg PO DAILY 08/10/18 08/10/18 History atorvastatin 80 mg PO QPM 08/10/18 08/10/18 History bupropion HCl [Wellbutrin SR] 100 mg PO BID 08/10/18 08/10/18 History diltiazem HCl 240 mg PO DAILY 08/10/18 08/10/18 History duloxetine 60 mg PO BID 08/10/18 08/10/18 History finasteride 5 mg PO DAILY 08/10/18 08/10/18 History furosemide 40 mg PO DAILY 08/10/18 08/10/18 History gabapentin 600 mg PO TID 08/10/18 08/10/18 History glimepiride 4 mg PO BID 08/10/18 08/10/18 History hydrocodone-acetaminophen 1 tab PO Q6H PRN 08/10/18 08/10/18 History lisinopril-hydrochlorothiazide 1 tab PO DAILY 08/10/18 08/10/18 History melatonin 6 mg PO HS PRN 08/10/18 08/10/18 History prazosin 2 mg PO HS 08/10/18 08/10/18 History ranitidine HCl 150 mg PO BID 08/10/18 08/10/18 History ropinirole 0.25 mg PO BID 08/10/18 08/10/18 History trazodone 200 mg PO DAILY 08/10/18 08/10/18 History Exam Vital signs: Vital Signs 08/10/18 16:24 08/10/18 16:49 08/10/18 18:27 Temperature 98.4 F Pulse Rate 96 H 76 Respiratory Rate 24 18 Blood Pressure 132/71 Pulse Oximetry 87 L 92 L 92 L 08/10/18 19:00 08/10/18 21:00 08/10/18 22:05 Temperature 97.9 F Pulse Rate 96 H 92 H 83 Respiratory Rate 20 20 20 Blood Pressure 164/75 H 138/93 H 146/69 H Pulse Oximetry 92 L 92 L 90 L 08/10/18 22:54 08/11/18 00:00 08/11/18 08:00 Temperature 98.0 F 98.0 F Pulse Rate 92 H 88 Respiratory Rate 22 17 Blood Pressure 141/77 H 146/70 H Pulse Oximetry 91 L 90 L 90 L Intake & Output 08/10/18 08/11/18 08/11/18 18:59 06:59 18:59 Output Total 750 / 750 Balance -750 / -750 Weight 119.748 kg 119 kg Output: Urine 750 / 750 Other: Date of Last Bowel Movement 08/10/18 Narrative: Bay is a pleasant 68-year-old male. General: Awake and alert. No acute distress. Appears well-developed well- nourished, moderately overweight Head: Normocephalic, atraumatic pupils are equal Neck: Soft, nontender, trachea midline Abdomen: Soft, nondistended Examination of right arm reveals no pain or deformity with shoulder, elbow, or wrist motion. Skin is intact. Radial pulse is palpable. Normal capillary refill in fingers. Sensation is intact in radial, ulnar, and median nerve distributions. Medical And Health Services Manager strength is +5. No lymphadenopathy noted. Examination of left arm reveals no pain with shoulder, elbow, or wrist motion. Examination of his elbow reveals significant swelling of the olecranon bursitis. He has minimal tenderness over the bursa. There is no warmth or erythema. He has no palpable elbow joint effusion. Skin is intact. Radial pulse is palpable. Normal capillary refill in fingers. Sensation is intact in radial, ulnar, and median nerve distributions. Medical And Health Services Manager strength is +5. No lymphadenopathy noted. Examination of left lower extremity reveals no pain or deformity with hip, knee , or ankle motion. Skin is intact. Dorsalis pedis pulse is palpable. Normal capillary refill and feet. Thigh and calf compartments are soft. No lymphadenopathy noted. +5 strength of ankle dorsiflexion and plantarflexion. Sensation is intact in left foot. Examination of right lower extremity reveals no pain or deformity with hip, knee , or ankle motion. Skin is intact. Dorsalis pedis pulse is palpable. Normal capillary refill and feet. Thigh and calf compartments are soft. No lymphadenopathy noted. +5 strength of ankle dorsiflexion and plantarflexion. Sensation is intact in right foot. Results - Labs Result Diagrams: 08/10/18 17:15 08/10/18 17:15 Labs: Laboratory Results - last 24 hr 08/10/18 08/10/18 08/10/18 17:15 17:15 17:15 WBC 13.1 H RBC 5.20 Hgb 16.5 Hct 47.9 MCV 92.1 MCH 31.6 MCHC 34.3 RDW 15.6 Plt Count 183 MPV 9.6 Neut % (Auto) 79.5 H Lymph % (Auto) 10.6 [place] % (Auto) 7.7 Eos % (Auto) 1.6 Baso % (Auto) 0.6 Neut # (Auto) 10.4 H Lymph # (Auto) 1.4 [place] # (Auto) 1.0 H Eos # (Auto) 0.2 Baso # (Auto) 0.1 WBC Differential . Differential Comment Auto diff final ESR Sodium 136 Potassium 3.5 Chloride 100 Carbon Dioxide 28.6 Anion Gap 7 BUN 16 Creatinine 1.09 Estimated GFR 67 L POC Glucose Random Glucose 239 H Calcium 8.4 L C-Reactive Protein 7.50 H 08/10/18 08/10/18 17:15 21:12 WBC RBC Hgb Hct MCV MCH MCHC RDW Plt Count MPV Neut % (Auto) Lymph % (Auto) [place] % (Auto) Eos % (Auto) Baso % (Auto) Neut # (Auto) Lymph # (Auto) [place] # (Auto) Eos # (Auto) Baso # (Auto) WBC Differential Differential Comment ESR 4 Sodium Potassium Chloride Carbon Dioxide Anion Gap BUN Creatinine Estimated GFR POC Glucose 190 H Random Glucose Calcium C-Reactive Protein - Diagnostic results Imaging: Impressions Elbow X-Ray 08/10/18 18:04 CONCLUSION: Soft tissue swelling extensor surface of the elbow most characteristic of an olecranon bursitis. Elbow x-ray: report reviewed, image reviewed Assessment and Plan - Assessment and Plan Bay has left elbow olecranon bursitis. Currently it appears to be inflammatory bursitis. It does not appear to be infection or septic bursitis or septic joint. Treatment options were discussed with the patient. At this point I would recommend conservative treatment with anti-inflammatories, ice, and activity restriction. I instructed him to look out for signs of infection such as redness, warmth, erythema, or drainage. If it does not become infected then he should be able to avoid surgery. He is in agreement with this plan would like to avoid surgery if possible. All questions were answered. He may be discharged and follow-up with orthopedics as an outpatient. A mid-level provider in my office (nurse practitioner or physician clinical project assistant) may see this patient on follow-up visits and continue to implement the objectives of this plan including: Starting or adjusting medications, injections , cast application, orthotics, brace application, physical therapy, radiological studies (including x-ray, MRI, CT, ultrasound, bone scan), vascular studies, neurologic studies, specialist consultation, and proceeding with surgical management, as appropriate.
[2018-08-11 08:59] LABS: Baso # (Auto) 0.1 th/mm3 (0.0-0.2); Baso % (Auto) 0.7 % (0.0-2.0); Eos # (Auto) 0.2 th/mm3 (0.0-0.4); Eos % (Auto) 1.4 % (0.0-4.0); Hematocrit 47.7 % (39.0-51.0); Hemoglobin 16.2 gm/dL (13.0-17.0); Lymph # (Auto) 1.3 th/mm3 (1.0-4.8); Lymph % (Auto) 11.2 % (9.0-44.0); Mean Corpuscular HGB Conc 33.9 % (32.0-36.0); Mean Corpuscular Hemoglobin 31.2 pg (27.0-34.0); Mean Corpuscular Volume 92.1 fL (80.0-100.0); Mean Platelet Volume 9.6 fL (7.0-11.0); Mono % (Auto) 8.4 % (0.0-8.0); Neut # (Auto) 9.4 th/mm3 (1.8-7.7); Neut % (Auto) 78.3 % (16.0-70.0); Platelet Count 160 th/mm3 (150-450); Red Blood Count 5.18 mil/mm3 (4.50-5.90); Red Cell Distribution Width 15.5 % (11.6-17.2); White Blood Count 12.1 th/mm3 (4.0-11.0)
[2018-08-11] MEDS ORDERED: Furosemide 40 MG Tablet PO SCH (09:00)
[2018-08-11] MEDS ORDERED: Famotidine 20 MG Tablet PO SCH (09:00)
[2018-08-11] MEDS ORDERED: hydroCHLOROthiazide 25 MG Tablet PO SCH (09:00)
[2018-08-11] MEDS ORDERED: Non-Formulary Drug (Lisinopril-Hydrochlorothiazide [Lisinopril-Hydrochlorothiazide] 1 TAB) PO SCH (09:00)
[2018-08-11] MEDS ORDERED: dilTIAZem CD 240 MG Capsule PO SCH (09:00)
[2018-08-11] MEDS ORDERED: Non-Formulary Drug (Diltiazem Hcl [Diltiazem Hcl] 240 MG) PO SCH (09:00)
[2018-08-11] MEDS ORDERED: Lisinopril 20 MG Tablet PO SCH (09:00)
[2018-08-11 09:24] LABS: Calcium 8.7 mg/dL (8.5-10.1); Carbon Dioxide 26.8 meq/L (21.0-32.0); Potassium 3.6 meq/L (3.5-5.1)
[2018-08-11] MEDS: Insulin NovoLOG Aspart Correctional Sugar Inj SQ SCH ×2 (09:56→12:28)
[2018-08-11] MEDS: KCL 20 mEq/NACL 0.45% Inj 1,000 ML IV.CONT SCH (09:56)
[2018-08-11] MEDS: Gabapentin 300 MG Capsule PO SCH ×2 (09:59→12:45)
[2018-08-11] MEDS: Senna/Docusate Sodium 8.6/50 MG Tablet PO SCH (09:59)
[2018-08-11 11:53] VITALS: BP 183/82; PULSE 86; TEMP 97.2; O2SAT 92
--- NOTE | 2018-08-11 16:11 | ECG ---
Date Performed: 08/10/2018 Time Performed: 22:46:13 PTAGE: 68 years EKG: Sinus rhythm WITH PACs ABNORMAL RHYTHM ECG PREVIOUS TRACING : 04/29/2016 17.42 DOCTOR: Jeffery Theodore Interpretating Date/Time 08/11/2018 16:10:58
== END 2018-08-11 13:28 | disposition home or self-care (01) | DRG 558 ==
LOC: NEPE 16:22 → NEDA 19:11 → N07 21:45
PROVIDERS: ADMIT Hospitalist; ATTEND Hospitalist
CPT/HCPCS: 20604; 73070; 80048; 82948; 82962; 85025; 85651; 85652; 86140; 93005; 97163; 97165; 99285; J1815; J3480